=== PATIENT | female | born 1990 | race Caucasian/White ===

== ENCOUNTER 2017-05-14 02:32 | Inpatient (IN) | payer OTHER ==
[2017-05-14] MEDS ORDERED: RHO D Immune Globulin (HUMAN)* 300 MCG = 1,500 I.U. INJ IM ONE (03:58)
[2017-05-14] MEDS ORDERED: Dibucaine 1% 28.35 GM TUBE PR PRN (03:58)
[2017-05-14] MEDS ORDERED: Acetaminophen TAB* 325 MG PO PRN (03:58)
[2017-05-14] MEDS ORDERED: Ibuprofen TAB* 600 MG PO PRN (03:58)
[2017-05-14] MEDS ORDERED: Witch Hazel PAD* JAR TOPICAL PRN (03:58)
[2017-05-14] MEDS ORDERED: oxyCODONE/Acetamin 5/325 MG* TAB PO PRN (03:58)
[2017-05-14] MEDS: Docusate CAP* 100 MG PO SCH ×2 (09:19→21:55)
[2017-05-15 06:43] LABS: Hematocrit 38 % (35-47); Hemoglobin 12.9 g/dl (12.0-16.0); Mean Corpuscular HGB Conc 34 g/dl (31-36); Mean Corpuscular Hemoglobin 29 pg (27-31); Mean Corpuscular Volume 86 fL (80-97); Mean Platelet Volume 9 um3 (7.4-10.4); Red Blood Count 4.46 10^6/ul (4.0-5.4); Red Cell Distribution Width 16 % (10.5-15); White Blood Count 13.1 10^3/ul (3.5-10.8)
[2017-05-15 08:18] VITALS: BP 114/83
[2017-05-15] MEDS ORDERED: Ferrous Gluconate TAB* 324 MG TAB PO SCH (09:00)
== END 2017-05-15 13:13 | disposition home or self-care (01) | DRG 775 ==
LOC: MCHOBOUT 02:32 → MCHOB 03:00
PROVIDERS: ADMIT Midwife; ATTEND Midwife
PROC: 10E0XZZ Delivery of Products of Conception, External Approach (ICD-10-PCS; principal; 2017-05-14)
DX: O48.0 Post-term pregnancy (principal); O26.893 Other specified pregnancy related conditions, third trimester; Z67.91 Unspecified blood type, Rh negative; Z3A.41 41 weeks gestation of pregnancy; Z37.0 Single live birth
CPT/HCPCS: 36415; 85025; 85461; 86900; 86901; A9270-GY; J2790

== ENCOUNTER 2019-06-23 16:16 | Inpatient (IN) | payer OTHER ==
[2019-06-23] MEDS ORDERED: Glycerin ADULT SUPP PR PRN (17:09)
[2019-06-23] MEDS ORDERED: Ibuprofen TAB* 600 MG PO PRN (17:09)
[2019-06-23] MEDS ORDERED: Witch Hazel PAD* JAR TOPICAL PRN (17:09)
[2019-06-23] MEDS ORDERED: Acetaminophen TAB* 325 MG PO PRN (17:09)
[2019-06-23] MEDS ORDERED: Dibucaine 1% 28.35 GM TUBE PR PRN (17:09)
--- NOTE | 2019-06-23 17:19 | PROCNOTE ---
[facility] OB: Delivery Note - Delivery A Date of : 06/23/19 Time of : 16:52 Superior Sex: Male Score 1 Minute: 9 Score 5 Minutes: 9 Gestational Age in Weeks and Days at Delivery: 39 Weeks and 5 Days Delivery Method: Spontaneous Vaginal Labor: Spontaneous Did Patient attempt ?: N/A, No Previous Amniotic Fluid: Clear Estimated Blood Loss: 200 Anesthesia/Analgesia: None Delivered By: Shaneka Shankar - Nursery Level of Nursery: Regular/Bedside - Perineum Perineal Injury: None/Intact Perineal Repair: None - Additional Delivery Notes Additional Delivery Notes: Pt admitted in active labor at 9cm. Active phase 1 hour. Pushed x 8 min with spontaneous rupture of membranes to clear fluid with pushing. liveborn male. Slow, controlled delivery of head. OA to SONNY. Shoulders followed easily with maternal push. Superior vigorous with spontaneous cry. HR>110bpm. Delivered to maternal abdomen. Cord clamped x 2 and cut by FOB when pulsations ceased. Spontaneous delivery intact placenta. Membranes complete. Fundus firm to massage with minimal bleeding noted. Perineum intact. No repair needed as above. EBL 200mL. At time of note mother and in stable condition. Planning to breast feed.
--- NOTE | 2019-06-23 17:20 | HP ---
General Information - Reason for Visit IUP at 39-5/7 in active labor, delivery imminent - General Information Maternal Age: 28 Grav: 3 Para: 2 SAB: 0 IEA: 0 Estimated Due Date: 06/25/19 Determined By: Early Ultrasound Maternal Blood Type and Rh: O Negative - Results this Serology/RPR Result: Non-Reactive Rubella Result: Immune HBsAg Result: Negative HIV Result: Negative GBS Culture Result: Negative Past Medical History Delivery History: Hx Uncomplicated Vaginal Delivery Delivery History Comment: 02/2015 8lbs 8oz female. Delivered at [facility] in [place], [place] 05/2017 8lbs 14oz female. Delivered at [facility] [place] by Ricarda Lopez LM Pertinent Past Medical History: Non-Contributory Pertinent Past Surgical History: None Pertinent Family History: See Records Family History Comment: PGM: , heart disease PGF: , old age MGM: , COPD MGF: , lung cancer - Antepartal Records Antepartal Records: Reviewed, Uncomplicated Review of Systems Constitutional: Uncomfortable CV Complaint: No Respiratory: Shortness of Breath: No Gastrointestinal: No Nausea/Vomiting, Normal Bowel Movement Genitourinary: No Dysuria, No Bleeding, No Leaking Fluid Musculoskeletal: Contractions, Pressure Neurological: No Headache, No Visual Changes Movement: Normal Exam Allergies/Adverse Reactions: Allergies No Known Allergies Allergy (Verified 03/16/17 21:29) BP 110/66 HR 89 RR 20 T 98 SpO2 100% on RA - Measurements Height: 5 ft 5 in Weight: 156 lb Weight in lbs: [id number] Body Mass Index (BMI): 25.9 Pre- Weight: 128 lb Weight Gained This : 28 lbs and 0 ozs - Exam Breast: Breast Exam Deferred CVA: No CVA Tenderness Extremities: No Edema Heart: Normal Rhythm/Heart Sounds HEENT: No Significant Findings Lungs: Clear Bilaterally Rectal: Rectal Exam Deferred Reflexes: DTR 2+ Thyroid: No Thyromegaly - Abdominal Exam Abdomen Exam: Non-Tender, Fundal Height Consistent with Dates - Ultrasound/Biophysical Profile Ultrasound Status: Not Done Targeted Exam Findings See L&D Outpatient Visit Provider Note for Findings: N/A Estimated Weight: 8.5-9lbs by Nithya Cervical Exam: 9cm Effacement: 100% Station: +1 Presenting Part: Vertex Membrane Status: Intact Sterile Speculum Exam: Not done Bleeding/Discharge: None EFM Findings - External Monitor Findings Baseline Heart Rate: 135 External Monitor Findings: Accelerations Present, No Pattern of Variable or Late Decelerations, Variability Moderate, Baseline Stable External Monitor Findings Comment: No evidence of metabolic acidemia Contractions: Regular, Strong, >90 Seconds Contraction Frequency: q2-4 min Assessment/Plan - Assessment IUP at 39-5/7 in active labor, delivery imminent No evidence of metabolic acidemia - Plan Plan: Admit - Anticipate Vaginal Delivery - Date/Time of Admission Date of Admission: 06/23/19 Time of Admission: 16:39
[2019-06-23] MEDS ORDERED: Simethicone TAB* 80 MG TAB.CHEW PO SCH (17:30)
[2019-06-23 19:34] LABS: Urine Benzodiazepine Screen None Detected (None Detect); Urine Opiates Screen None Detected (None Detect)
[2019-06-23] MEDS: Docusate CAP* 100 MG PO SCH (23:59)
[2019-06-24 08:57] LABS: ABS Lymphocytes 1.9 10^3/ul (1.0-4.8); ABS Monocytes 0.8 10^3/ul (0-0.8); ABS Neutrophils 10.2 10^3/ul (1.5-7.7); Eosinophil % 0.2 %; Hematocrit 37 % (35-47); Hemoglobin 12.5 g/dL (12.0-16.0); Lymphocyte % 14.5 %; Mean Corpuscular HGB Conc 34 g/dL (31-36); Mean Corpuscular Hemoglobin 27 pg (27-31); Mean Corpuscular Volume 81 fL (80-97); Mean Platelet Volume 8.6 fL (7.4-10.4); Platelet Count 146 10^3/uL (150-450); Red Blood Count 4.56 10^6 /uL (3.70-4.87); Red Cell Distribution Width 14 % (10-15); White Blood Count 12.9 10^3/uL (3.5-10.8)
[2019-06-24] MEDS ORDERED: Ferrous Gluconate TAB* 324 MG TAB PO SCH (09:00)
[2019-06-24] MEDS: Docusate CAP* 100 MG PO SCH ×2 (09:21→14:45)
[2019-06-24 16:06] VITALS: BP 91/68
== END 2019-06-24 17:50 | disposition home or self-care (01) | DRG 560 ==
LOC: MCHOBOUT 16:16 → MCHOB 16:39
PROVIDERS: ADMIT Midwife; ATTEND Midwife
PROC: 10E0XZZ Delivery of Products of Conception, External Approach (ICD-10-PCS; principal; 2019-06-23)
DX: O80 Encounter for full-term uncomplicated delivery (principal); Z37.0 Single live birth; Z3A.39 39 weeks gestation of pregnancy
CPT/HCPCS: 36415; 80307; 85025; A9270-GY